=== PATIENT | female | born 1990 | race African-American/Black ===

== ENCOUNTER 2025-05-06 10:24 | Emergency (ER) | payer MEDICAID, SELFPAY ==
--- NOTE | 2025-05-06 10:39 | ED_ITS ---
HPI - General Adult General Chief complaint: Upper Respiratory Symptoms Stated complaint: sore throat, ear pain Time Seen by Provider: 05/06/25 10:42 Source: patient and document advisor (all interactions with this patient were facilitated with an [facility] Corporate Financial Analyst (Trung Restrepo)) Mode of arrival: ambulatory Limitations: language barrier (all interactions with this patient were facilitated with an [facility] Corporate Financial Analyst (Trung Restrepo)) History of Present Illness ED Provider: Alexa Bautista PA-C HPI narrative: Patient is a 35 year old female with a history of heart failure and ICD placement presenting to the emergency department today with a sore throat. Patient states that over the last week she has had a sore throat that is not improving. Patient states that she has an extensive cardiac history and has not established with a doctor here since moving from [facility]. Patient states that she needs refills of all of her medications and she has a list on her phone of them. Patient denies any other complaints at this time. Related Data Previous Rx's ?Medication ?Instructions ?Recorded empagliflozin 25 mg tablet 25 mg PO DAILY #30 tabs (Jardiance) ferrous sulfate 325 mg (65 mg 325 mg PO DAILY #30 tabs 05/06/25 iron) tablet metoprolol succinate 25 mg 25 mg PO DAILY #30 tabs tablet,extended release 24 hr montelukast 10 mg tablet 10 mg PO DAILY #30 tabs 04/14 09/05 penicillin V potassium 500 mg 500 mg PO BID 10 days #2 0 tabs 05/06/25 tablet sacubitril 49 mg-valsartan 51 mg 1 tab PO BID 30 days #60 tabs 05/06/25 tablet (Entresto) spironolactone 25 mg tablet 25 mg PO DAILY #30 tabs Allergies Allergy/AdvReac Type Severity Reaction Status Date / Time No Known Allergies Allergy Verified 05/06/25 10:45 Review of Systems Constitutional: Constitutional: Reports as per HPI Eyes: Eyes: Reports as per HPI ENT: Reports as per HPI Cardiovascular: Cardiovascular: Reports as per HPI Respiratory: Respiratory: Reports as per HPI Gastrointestinal: Gastrointestinal: Reports as per HPI Genitourinary: Genitourinary: Reports as per HPI Musculoskeletal: Musculoskeletal: Reports as per HPI Integumentary/Breasts: Skin/Breast: Reports as per HPI Neurologic: Reports as per HPI Psychiatric: Psychiatric: Reports as per HPI Endocrine: Endocrine: Reports as per HPI Hematologic/Lymphatic: Hematologic/Lymphatic: Reports as per HPI Allergic/Immunologic: Allergic/Immunologic: Reports as per HPI [facility] Past Medical History Attestation statement: The following information was validated with the patient. Source: old records reviewed and nursing notes reviewed Social History Social History Advance Directives: No Advance Directives Information Provided: No Physical Exam ED Vital Signs: Vital Signs - 24 hr 05/06/25 10:44 Temperature 97.6 F Pulse Rate 80 Respiratory Rate 18 Blood Pressure 191/108 H Pulse Oximetry 97 Oxygen Delivery Method Room Air BMI result Body Mass Index 56.7 Const General: cooperative, no acute distress, alert and awake Nutritional Appearance: well nourished Orientation/consciousness: patient oriented x3 HENMT Head: Yes normal to inspection and Yes atraumatic Ears: hearing grossly normal bilaterally and external ears normal General nose exam: Normal external nose present, no nasal discharge noted and no epistaxis Face and sinus: Yes normal facial exam, No abrasion and No laceration Mouth: Normal oral and palatal mucosa present, no drooling and no muffled voice Eyes General: appearance normal, both eyes and all related structures Periorbital: periorbital findings normal Eyelids: Yes eyelids normal Conjunctivae: conjunctivae normal Pupils: Equal, round and reactive pupils present EOM: EOMs intact bilaterally Neck Neck: Yes normal visual inspection and Yes full ROM Resp Effort & Inspection: normal respiratory effort and able to speak in complete sentences Neuro General: patient oriented x3, moves all extremities and CN's II-XI intact bilaterally Cranial nerves: Yes Equal, round and reactive pupils present Cognition (Neuro): normal cognition Extrem General: Yes normal to inspection, Yes full ROM and Yes capillary refill normal Psych Appearance: grossly normal Mental Status: mental status grossly normal Affect: normal affect Attitude: cooperative Thought process: Normal thought process present Thought content: Normal thought content present Insight: Good insight present (Psych) Course Course Course Narrative: This is a rapid medical exam performed by Buffy Osei NP: Additional HPI, ROS, PE not included below will be deferred to primary provider. Patient is a 35y/o Spansh speaking F presenting with complaint of sore throat and ear pain. Sore throat x 1 week, right ear pain x 2 days. Fever last night. Plan: strep and viral serology Medical Decision Making Medical Decision Making [facility] Narrative: Patient is a 35 year old female with a history of heart failure and ICD placement presenting to the emergency department today with a sore throat. Patient's physical exam was as noted in the physical exam portion of this note. Patient's COVID-19, influenza, and RSV testing was negative. Patient's strep testing is positive. I explained my physical exam findings as well as all test results to the patient. I answered all questions asked by the patient. Patient prescribed an antibiotic for her strep throat and prescribed refills of the medications she needs. Patient provided a primary care provider list as well as cardiology referral. I stressed the importance of the patient taking her medication as directed (either prescribed or as the over the counter packaging recommends). I stressed the importance of the patient following up with her primary care provider and cardiology team. I stressed the importance of the patient returning to the emergency department immediately if her symptoms were to worsen or if she were to develop any dizziness, shortness of breath, difficulty breathing, chest pain, blurry vision, loss of vision, nausea, vomiting, abdominal pain, fever, chills, back pain, or any other complaints. Patient verbalized agreement and understanding with this treatment plan and discharge. Differential Diagnosis Differential Diagnoses: The differential diagnosis associated with the presentation includes Strep pharyngitis COVID-19 Influenza RSV Admission/Observation Consideration of admission/observation: Escalation of care including admission/observation considered Patient would have been admitted to the hospital had her work up had any findings where hospital admission was appropriate and her clinical presentation warranted hospital admission. Lab Data [facility] Lab Attestation statement: I reviewed the patient's lab results. My interpretation of these results are in the [facility] Rationale portion of this note. Labs: Lab Results 05/06/25 Range/Units 11:20 S. pyogenes GrpA RUDY Positive A (Negative) Prescription Management I considered prescription management with: Antibiotic (patient prescribed an antibiotic for strep pharyngitis) Discharge Plan Discharge Clinical Impression: Strep pharyngitis, Medication refill Patient Disposition: Home, Self-Care Instructions: Strep Throat (DC), Medicine Refill (ED) Additional Instructions: Your testing today showed evidence of strep throat. You have been prescribed an antibiotic for this - please take it as directed. Las pruebas realizadas hoy ho revelado que tiene faringitis estreptoc?cica. Se le han recetado un antibi?kelly para tratarla; t?hernandez seg?n las indicaciones. I prescribed refills of all of your medications EXCEPT Losartan as that strength is not possible for me to prescribe. Le he recetado reposiciones de todos dejah medicamentos EXCEPTO Losart?n, ya que no puedo recetarle angie dosis. You MUST follow up with a launch steward and primary care provider - you have been given phone numbers for both of these teams. Debe realizar un seguimiento con un cardi?logo y [place] m?dico de cabecera; se le ho facilitado los n?meros de tel?fono de ambos equipos. IF you are prescribed home medications and/or you are taking over the counter medications at home - it is very important you continue to do so as prescribed / directed unless told otherwise. SI le recetan medicamentos y/o est? tomando medicamentos de venta cirstian, es muy importante que contin?e haci?ndolo seg?n lo recetado/indicado a menos que le indiquen lo contrario. Follow up with your primary care provider. Return to the emergency department immediately if your symptoms worsen or if you develop any dizziness, shortness of breath, difficulty breathing, chest pain, blurry vision, loss of vision, nausea, vomiting, abdominal pain, fever, chills, back pain, or any other complaints. Ashley?seguimiento?con [place] m?dico de atenci?n primaria. Acuda inmediatamente al servicio de urgencias si dejah s?ntomas empeoran o si presenta falta de aliento, dificultad para respirar, dolor tor?cico, mareos, aturdimiento, dolor de espalda, dolor abdominal, fiebre, escalofr?os o cualquier otro s?ntoma. If you do not have a primary care provider - call any of the below numbers to establish and follow up with a primary care provider. Si no tiene un proveedor de atenci?n primaria, llame a cualquiera de los n?meros que aparecen a continuaci?n para establecer y hacer seguimiento con un proveedor de atenci?n primaria. [facility] Primary Care ([place]) [phone] [place] [address], [address] [facility] Primary Care ([address] [place]) [phone] [place] [address], [address] [facility], [address] [facility] Primary Care ([address] [place]) [phone] [place] [address], [address] [facility], [address] [facility] Primary Care ([place]) [phone] [place] [address], [address] [facility], [address] [facility] Family Medicine [phone] [address] [facility], [address] Please see the information below about our Patient Portal. If you are not yet enrolled in the [facility] Patient Portal, you will receive an enrollment email invitation following your visit to any [facility] setting. You may also self-enroll in the Patient Portal by visiting our website: [email or web address] The following information is required to access the Patient Portal: - Your [facility] Medical Record Number - Your personal home email address (must match what is in your electronic medical record, Registration staff can assist with this) - Name - Date of Capabilities of the Patient Portal: - Message some providers - View upcoming appointments - Access your health summary, medical history, and visit history - View current conditions and allergies - View procedure and lab results - View your medications, including guidelines, side effects, and precautions - Complete pre-appointment questionnaires requested by your provider - Ready summary reports of your office visits and procedures To access the Patient Portal Mobile Donna, follow these directions: - Search [employer] in the Donna Store or [employer] Store - Download the Donna - Search for [facility] - Enter your login/password Portal del paciente Si usted no esta inscrito en el portal de pacientes de [facility], recibira aleida invitacion de inscripcion despues de [place] visita al [facility] o al [facility] via correo electronico. Tambien puede inscribirse voluntariamente en el portal de pacientes visitando nuestra pagina web: [email or web address] La siguiente informacion sera requerida para acceder al portal: - [place] rosangela de historia medica de [facility] - [place] direccion de correo electronico personal - Nombre - Fecha de nacimiento Capacidades: Las siguientes capacidades estan disponibles en el portal de pacientes: - Enviar mensajes a algunos doctores - Verificar proximas citas - Acceso a [place] historial de guillaume, registro medico e historial de visitas - Henok las condiciones actuales y alergias henok procedimientos y resultados del laboratorio - Henok dejah medicamentos, incluyendo las pautas - Efectos secundarios y precauciones - Completar o llenar formularios / cuestionarios de - Citas solicitadas por [place] doctor - Leer los resumenes de reportes medicos de dejah visitas y procedimientos Tam acceder a la aplicacion movil: - Busque [employer] en la Donna Store o [employer] Store - Descargue la aplicacion - Busque [facility] - Ingrese [place] nombre de usuario / Contrasena Prescriptions: New penicillin V potassium 500 mg tablet 500 mg PO BID 10 Days Qty: 20 0RF spironolactone 25 mg tablet 25 mg PO DAILY Qty: 30 3RF ferrous sulfate 325 mg (65 mg iron) tablet 325 mg PO DAILY Qty: 30 3RF montelukast 10 mg tablet 10 mg PO DAILY Qty: 30 0RF metoprolol succinate 25 mg tablet extended release 24 hr 25 mg PO DAILY Qty: 30 3RF Jardiance 25 mg tablet 25 mg PO DAILY Qty: 30 3RF sacubitril-valsartan [Entresto] 49-51 mg tablet 1 tab PO BID 30 Days Qty: 60 3RF Referrals: [facility] [Provider Group] Referral Note: Call to establish and follow up with the cardiology team. Llamar para concertar aleida marcello y hacer un seguimiento con el equipo de cardiologia. Print Language: Dutch
[2025-05-06 10:44] VITALS: BP 191/108; PULSE 80; RESP 18; TEMP 36.4; O2SAT 97; BMI 56.7
[2025-05-06 11:36] LABS: Strep A Nucleic Acid Positive (Negative)
--- OUTSIDE RECORDS SUMMARY | 2025-05-06 11:39 | XMS_ITS | Clinical Summary ---
Author Organization [employer] [facility] Address [address] [place] [address] Care Team Providers Care Data Entry Coordinator Name Role Phone Unavailable Primary Care Provider Unavailabl e Encounters Date Type Department Care Team Description 04/15/2025 Population Health Risk Score [facility] Care [facility] (C3) Department [address] [facility] [address] [place] [id number] Provider, Population Health Generic from Last 3 Months Social History Tobacco Use Types Packs/Day Years Used Date Smoking Tobacco: Never Assessed Comments Unknown Sex and Gender Information Value Date Recorded Sex Assigned at Not on file Legal Sex Female 2:27 AM EST Gender Identity Not on file Sexual Orientation Not on file Plan of Treatment Health Maintenance Due Date Last Done Comments Depression Screening 1991 HIV Screening 1991 SDOH Screening 1991 Disability Screening 1991 Alcohol/Substance Use Screening 2003 Tobacco Screening 2003 Family Planning (PISQ) 2006 HPV Vaccines (1 - 3-dose series) 2006 Hepatitis C Screening 2009 DTaP/Tdap/Td Vaccines (1 - Tdap) 2010 Hepatitis B Vaccines (1 of 3 - 19+ 3-dose series) 2010 Pap Smear 2012 Cervical Cancer Screening 2021 HPV/Cotest 2021 COVID-19 Vaccine (1 - 2024-2 6 season) 2025 Influenza Vaccine (#1) 2025 Zoster Vaccines (1 of 2) 2041 RSV Patients and Pa tients Aged 60 years or older (1 - 1-dose 75+ series) 2066 HIB Vaccines Aged Out No longer eligi ble based on patient's age to complete this topic Hepatitis A Vaccines Aged Out No long er eligible based on patient's age to complete this topic IPV Vaccines Aged Out No longer eligi ble based on patient's age to complete this topic Meningococcal B Vaccine Aged Out No l onger eligible based on patient's age to complete this topic Meningococcal Vaccine Aged Out No ana rosa alon eligible based on patient's age to complete this topic Pneumococcal Vaccine: Pediat rics (0 to 5 Years) and At-Risk Patients (6 to 49) Years Aged Out No longer eligible b ased on patient's age to complete this topic RSV under 20 months Aged Out No longe r eligible based on patient's age to complete this topic Rotavirus Vaccines Aged Out No longer eligible based on patient's age to complete this topic
[2025-05-06 12:07] LABS: Resp Syncy Virus RNA Qual PCR NEGATIVE (Negative); SARS COV2 PCR INHOUSE NEGATIVE (Negative)
[2025-05-06 12:37] VITALS: BP 191/108; PULSE 80; RESP 18; TEMP 36.4; O2SAT 97
== END 2025-05-06 12:37 | disposition home or self-care (01) ==
PROVIDERS: Registered Nurse Emergency; Emergency Provider Emergency Medicine
DX: J02.0 Streptococcal pharyngitis (principal); Z76.0 Encounter for issue of repeat prescription; Z03.818 Encounter for observation for suspected exposure to other biological agents ruled out; H92.01 Otalgia, right ear
CPT/HCPCS: 87637; 87651; 99282; 99283